=== PATIENT | female | born 1995 | race Caucasian/White ===

== ENCOUNTER 2023-04-13 09:00 | Emergency (ER) | payer OTHER, SELFPAY ==
[2023-04-13] VITALS (12 sets, daily range): BP systolic 104–135; BP diastolic 61–90; PULSE 56–80; RESP 15–23; TEMP 36.5–36.6; O2SAT 98–100
--- NOTE | ~2023-04-13 | CT_ITS ---
EXAMINATION: CT brain wo con DATE: 04/13/2023 11:11 INDICATION: Syncope. TECHNIQUE: Computed tomography (CT) of the head was performed without intravenous contrast. The mA wa s adjusted according to patient size. Iterative reconstruction technique was employed. The dose-lengt h product was 605.33 mGy-cm. COMPARISON: None FINDINGS: There is no intracranial hemorrhage, acute infarction, or abnormal intracranial mass lesion . The ventricles are normal in size. The orbits are normal. The paranasal sinuses are clear. The mast oid air cells are normal. IMPRESSION: 1. Normal brain. Reviewed, dictated and finalized at location A. IMPRESSION: 1. Normal brain.
--- NOTE | ~2023-04-13 | XR_ITS ---
EXAMINATION: XR chest 1V portable DATE: 04/13/2023 12:23 INDICATION: Syncope. Fall. TECHNIQUE: A single frontal view of the chest was obtained. COMPARISON: None. FINDINGS: There is mild atelectasis in the lower lung zones. No pleural effusion or pneumothorax. The heart size is normal. IMPRESSION: 1. Mild atelectasis in the lower lung zones. Reviewed, dictated and finalized at location A.
--- NOTE | 2023-04-13 10:00 | ECG_ITS ---
Measurements Intervals [place] Rate: 66 P: 32 CA: 156 QRS: 67 QRSD: 81 T: 25 QT: 396 QTc: 416 Interpretive Statements SINUS RHYTHM NORMAL ECG NO PREVIOUS ECG AVAILABLE FOR COMPARISON Electronically Signed On 04-13-2023 12:10:27 CDT by Barak Aguirre D.O.
[2023-04-13 10:25] LABS: Basophils Percent Auto 0.4 % (0.2-1.2); Eosinophils Percent Auto 0.4 % (0-4.4); Hematocrit 41.3 % (37.0-47.0); Hemoglobin 13.9 g/dL (12.0-15.0); Immature Granulocyte Absolute 0.04 K/mm3 (0.00-0.031); Immature Granulocyte Percent A 0.5 % (0-0.5); Lymphocytes Absolute Auto 1.09 K/mm3 (0.9-3.2); Mean Corpuscular HGB Conc 33.7 g/dl (32-36); Mean Corpuscular Hemoglobin 30.1 pg (26-34); Mean Corpuscular Volume 89.4 fl (80-100); Mean Platelet Volume 10.5 fl (7.4-10.4); Monocytes Absolute Auto 0.5 K/mm3 (0.1-0.6); Neutrophils Absolute Auto 6.7 K/mm3 (1.3-6.7); Neutrophils Percent Auto 79.7 % (45.5-73.1); Platelet Count Result 256 k/mm3 (150-375); Red Blood Count 4.62 M/mm3 (4.2-5.4); Red Cell Distribution Width 12.6 % (11.5-14.5); White Blood Count 8.4 K/mm3 (4.5-10.0)
[2023-04-13 10:37] LABS: Alanine Aminotransferase 17 U/L (6-35); Albumin Level 4.2 g/dL (3.5-5.1); Alkaline Phosphatase 59 U/L (38-126); Anion Gap 4 mmol/L (8-16); Aspartate Amino Transferase 26 U/L (14-36); Bilirubin,Total 0.5 mg/dL (0.2-1.3); Blood Urea Nitrogen 12 mg/dL (7-17); Calcium 8.5 mg/dL (8.4-10.2); Carbon Dioxide 30 mmol/L (22-30); Chloride 103 mmol/L (98-107); Estimated CRCL calculation 117 ml/min; Estimated Glomerular Filt Rate > 60; Glucose 96 mg/dL (65-110); Potassium 4.5 mmol/L (3.4-5.0); Sodium 137 mmol/L (137-145)
[2023-04-13] MEDS: SODIUM CHLORIDE 0.9% IV 1,000 ML 999 ML IV CONT (11:59)
--- NOTE | 2023-04-13 12:16 | ED.FALL ---
HPI - Fall General Chief Complaint: Fall Stated Complaint: fall/syncope?? Time Seen by Provider: 04/13/23 10:51 Source: patient Mode of arrival: ambulatory Limitations: no limitations History of Present Illness HPI Narrative: This is a 27-year-old female who presents to the ED with chief complaint of a fall and syncopal episode. Patient states she was running when she lost her balance on an uneven sidewalk and fell hard onto the left side of her body. She had some pain and abrasions but felt okay. She then stood up and started walking and started feeling lightheaded. She feels that at that time she had a true syncopal episode because she only remembers waking up in the street. She had some nausea and sweats when she came to. as I interview her patient states that all of her symptoms have resolved. She denies ever have any shortness of breath or chest pain. Denies vomiting. Denies abdominal pain, any significant joint pain. Denies numbness, weakness. Related Data Allergies Allergy/AdvReac Type Severity Reaction Status Date / Time No Known Allergies Allergy Verified 04/13/23 09:00 Review of Systems Review of Systems: CONSTITUTIONAL: Denies fever, chills, or sweats. EYES: Denies visual changes, redness, or discharge. ENT: Denies rhinorrhea, congestion, sore throat, or otalgia. CARDIOVASCULAR: Denies chest pain, palpitations, or edema. RESPIRATORY: Denies cough or dyspnea. GASTROINTESTINAL: Denies abdominal pain, nausea, vomiting, or diarrhea. GENITOURINARY: Denies dysuria or hematuria. SKIN: See HPI MUSCULOSKELETAL: Denies back pain, joint pain, or myalgia. NEUROLOGIC: See HPI PSYCHIATRIC: Denies anxiety or depression. Exam Narrative: GENERAL: Well-appearing, well-nourished, and in no acute distress. Pleasant and conversational. Resting comfortably. HEAD: Normocephalic, atraumatic. EYES: PERRLA and EOMI. ENT: Nares clear, no rhinorrhea or epistaxis. Mucous membranes moist. Oropharynx without tonsillar hypertrophy exudate or other lesions. NECK: Supple. No adenopathy or masses. CHEST: No respiratory distress. Clear to auscultation. No wheezes rales or rhonchi HEART: Regular rate and rhythm. No murmur heard. Normal peripheral pulses. ABDOMEN: Soft, nontender, nondistended, normal active bowel sounds. MSK: She is ambulatory. No deformities or obvious injuries. No bruising. Normal range of motion. No edema. SKIN: Minor abrasions to the knees and left wrist. No head wounds. NEURO: Alert and oriented x3. No focal deficits. Cranial nerves II through XII intact. 5 out of 5 strength and sensation in the upper and lower extremities. PSYCH: Normal mood and affect. Course Vital Signs Vital signs: Vital Signs Temperature 97.7 F 04/13/23 09:12 Pulse Rate 80 04/13/23 09:12 Respiratory Rate 18 04/13/23 09:12 Blood Pressure 119/65 04/13/23 09:12 Pulse Oximetry 99 04/13/23 09:12 Temperature 98 F 04/13/23 09:24 Pulse Rate 78 04/13/23 12:57 Respiratory Rate 16 04/13/23 12:57 Blood Pressure 135/90 04/13/23 12:57 Pulse Oximetry 99 04/13/23 12:57 Oxygen Delivery Room Air 04/13/23 09:24 MDM - Fall MDM Narrative Medical decision making narrative: This is a 27-year-old female who presents to the ED with chief complaint of syncopal episode after a fall. Vitals are stable. Her exam is very benign. CT brain without contrast shows no acute findings. EKG is within normal limits. Chest x-ray shows mild atelectasis in the bilateral bases but this does not clinically correlate with her story. Lab work is largely unremarkable as well. Feel this is an isolated event, could be due to orthostatic hypotension. Her exam is very reassuring so she will be discharged in stable condition. Strict return precautions given. Supportive measures at home discussed. Patient is understanding and agreeable with the plan for discharge and follow-up. Lab Data 04/13/23 10:19
== END 2023-04-13 12:58 | disposition home or self-care (01) ==
PROVIDERS: Emergency Medicine; Emergency Provider Physician Assistant; PCP Internal Medicine
DX: R55 Syncope and collapse (principal)
CPT/HCPCS: 36415; 70450; 71045; 80053; 81025; 85025; 93005; 96360; 99284; J7030